=== PATIENT | male | born 1985 | race Two or more races ===

== ENCOUNTER 2024-12-20 17:24 | Emergency (ER) | payer MEDICAID ==
[~2024-12-20] VITALS: Ht 182.9 cm; Wt 81.0 kg
[2024-12-20 17:34] VITALS: O2SAT 99
[2024-12-20 18:17] LABS: BASOPHILS % 0.8 % (0.0-2.0); EOSINOPHILS % 3.9 % (0.0-5.0); HEMATOCRIT. 41.5 % (42.0-52.0); HEMOGLOBIN. 14.3 g/dL (14.0-18.0); LYMPHOCYTES % 42.1 % (20.0-50.0); MEAN CORPUSCULAR HEMOGLOBIN 28.9 pg (28.0-32.0); MEAN CORPUSCULAR HGB CONC 34.5 g/dL (31.0-37.0); MEAN CORPUSCULAR VOLUME 83.9 fL (80.0-94.0); MEAN PLATELET VOLUME 10.4 fl (7.4-10.4); MONOCYTES % 8.9 % (2.0-8.0); NEUTROPHILS % 44.3 % (40.0-76.0); PLATELET 166 x1000/uL (130-400); RED BLOOD CELL COUNT 4.94 mill/uL (4.7-6.1); RED CELL DISTRIBUTION WIDTH 12.8 % (11.6-14.6); WHITE BLOOD COUNT 5.1 x1000/uL (4.5-11.0)
[2024-12-20] MEDS: ACETAMINOPHEN 325MG TABLET PO STA (18:20)
[2024-12-20] MEDS: KETOROLAC 30MG/ML VIAL IM STA (18:23)
[2024-12-20 18:27] LABS: CHLORIDE 101 mEq/L (98-107); POTASSIUM 3.3 mEq/L (3.5-5.1); SODIUM 140 mEq/L (136-145)
[2024-12-20 18:28] LABS: CARBON DIOXIDE 31 mEq/L (21-32)
[2024-12-20 18:33] LABS: CREATININE 0.8 mg/dL (0.6-1.3); GLUCOSE 116 mg/dL (70-105); UREA NITROGEN BLOOD 9 mg/dL (9-23)
[2024-12-20 18:35] LABS: ALANINE AMINOTRANSFERASE 25 IU/L (10-49); ALBUMIN 4.6 g/dL (3.2-4.8); ASPARTATE AMINOTRANSFERASE 23 IU/L (<34); BILIRUBIN DIRECT 0.4 mg/dL (<=3.0); BILIRUBIN TOTAL 1.4 mg/dL (0.1-1.0); PROTEIN TOTAL 7.3 g/dL (6.0-8.3)
[2024-12-20 19:14] LABS: CLARITY URINE CLEAR (CLEAR); COLOR URINE YELLOW (YELLOW); GLUCOSE URINE NEGATIVE (NEGATIVE); KETONES URINE NEGATIVE (NEGATIVE); LEUKOCYTE ESTERASE URINE NEGATIVE (NEGATIVE); NITRITE URINE NEGATIVE (NEGATIVE); OCCULT BLOOD URINE NEGATIVE (NEGATIVE); PH URINE 6.5 (4.5-8.0); PROTEIN URINE NEGATIVE (NEGATIVE); SPECIFIC GRAVITY URINE 1.008 (1.005-1.030); UROBILINOGEN URINE 0.2 E.U./dL (0.2-1.0)
[2024-12-20] MEDS ORDERED: TOPUD PO (20:32)
[2024-12-20] MEDS ORDERED: IBUP-2029 MT (20:32)
[2024-12-20 20:48] VITALS: BP 102/71; PULSE 72; RESP 20; TEMP 36.7; O2SAT 100
== END 2024-12-20 20:53 | disposition home or self-care (01) ==
LOC: ER 17:24
DX: M54.50 Low back pain, unspecified (principal); R10.9 Unspecified abdominal pain; Z91.011 Allergy to milk products; Z91.010 Allergy to peanuts
CPT/HCPCS: 80076; 80048; 81003; 85025; 86850; 86900; 86901; 36415; 74176; 96372; 99285; J1885; Z7610